=== PATIENT | male | born 1960 | race Caucasian/White ===

== ENCOUNTER 2021-02-11 10:55 | Day surgery (SDC) | payer OTHER ==
[~2021-02-11] VITALS: Ht 182.9 cm; Wt 97.3 kg
[~2021-02-11 10:55] MED LIST: CALC300T5 PO; CISPLATIN
[2021-02-11 11:24] VITALS: BP 122/83
[2021-02-11] MEDS ORDERED: CHLORHEXIDINE 15 ML UDC ONE (11:28)
[2021-02-11] MEDS ORDERED: LACTATED RINGERS 1,000 ML IV SCH (11:30)
[2021-02-11] MEDS ORDERED: PLEASE ENTER HEIGHT AND WEIGHT MC SCH (11:30)
[2021-02-11] MEDS ORDERED: CHLORHEXIDINE 15 ML UDC PO ONE (11:30)
[2021-02-11] MEDS ORDERED: MIDAZOLAM 1 MG/ML, 2ML ONE (12:26)
[2021-02-11] MEDS ORDERED: FENTANYL PF 250 MCG/5ML ONE (12:26)
[2021-02-11] MEDS ORDERED: hydrALAzine 20 MG/ML, 1ML IV PRN (12:30)
[2021-02-11] MEDS ORDERED: MEPERIDINE/PF 25MG/0.5ML IVPush PRN (12:30)
[2021-02-11] MEDS ORDERED: PROMETHAZINE 25 MG/ML, 1ML IVPush PRN (12:30)
[2021-02-11] MEDS ORDERED: LABETALOL 5MG/ML, 20ML IV PRN (12:30)
[2021-02-11] MEDS ORDERED: ACETAMINOPHEN 325 MG TABLET PO PRN (12:30)
[2021-02-11] MEDS ORDERED: ONDANSETRON 2MG/ML, 2ML IVPush PRN (12:30)
[2021-02-11] MEDS ORDERED: HYDROmorphone 1 MG/ML, 1ML INJ IVPush PRN (12:30)
[2021-02-11] MEDS ORDERED: OXYcodone 5 MG/5 ML ORAL.SOL UDC PO PRN (12:30)
[2021-02-11] MEDS ORDERED: FENTANYL PF 100 MCG/2ML IV PRN (12:30)
[2021-02-11] MEDS ORDERED: EPINEPHRINE 1 MG/ML, 1ML ONE (12:51)
[2021-02-11] MEDS ORDERED: BUPIVACAINE/PF 0.5% ONE (12:51)
[2021-02-11] MEDS ORDERED: CEFAZOLIN 1,000 MG ONE ×2 (13:18)
[2021-02-11] MEDS ORDERED: DEXAMETHASONE 4 MG/ML, 1ML ONE ×2 (13:19→13:25)
[2021-02-11] MEDS ORDERED: KETOROLAC 30 MG/1 ML ONE (13:25)
[2021-02-11] MEDS ORDERED: ONDANSETRON 2MG/ML, 2ML ONE (13:25)
[2021-02-11] MEDS ORDERED: PROPOFOL 10 MG/ML, 20ML ONE (13:25)
[2021-02-11] MEDS ORDERED: ROCURONIUM 10MG/ML,5ML ONE (13:35)
== END 2021-02-11 16:10 | disposition home or self-care (01) ==
LOC: OUT 10:55
PROVIDERS: ATTEND Surgery
DX: K40.90 Unilateral inguinal hernia, without obstruction or gangrene, not specified as recurrent (principal); D17.6 Benign lipomatous neoplasm of spermatic cord; Z20.822 Contact with and (suspected) exposure to COVID-19; Z79.899 Other long term (current) drug therapy; Z98.890 Other specified postprocedural states
CPT/HCPCS: 49650; 93005; C1781; J0171; J0690; J1100; J1885; J2250; J2405; J2704; J3010; J7120; S2900; U0003; U0005